=== PATIENT | female | born 1985 | race Caucasian/White ===

== ENCOUNTER 2017-08-01 19:16 | Emergency (ER) | payer OTHER ==
[2017-08-01 19:55] LABS: BASOPHILS 0 % (0-2); EOSINOPHILS 0.2 % (0-7); HEMATOCRIT 35.2 % (36.0-48.0); HEMOGLOBIN 12.4 g/dL (12-16); LYMPHOCYTES 15.1 % (15-50); MCH 30.8 pg (26.0-34.0); MCHC 35.2 g/dL (31.0-37.0); MCV 87.6 fL (80.0-100.0); MEAN PLATELET VOLUME 9.2 fL (7.4-10.4); MONOCYTES 11.4 % (2-11); NEUTROPHILS 73.3 % (40-80); PLATELET COUNT 158 10x3/uL (130-400); RBC 4.02 10x6/uL (4.00-5.40); RDW 11.9 % (11.5-14.5)
[2017-08-01 20:09] LABS: ALBUMIN 3.9 g/dL (3.4-5.0); ANION GAP 15.3 mmol/L (8-16); BILIRUBIN - TOTAL 0.39 mg/dL (0.2-1.3); CALCIUM 8.7 mg/dL (8.5-10.1); POTASSIUM - SERUM 3.3 mmol/L (3.5-5.1); PROTEIN - SERUM 7.5 g/dL (6.4-8.2)
== END 2017-08-01 20:50 | disposition home or self-care (01) ==
LOC: D.ER 19:16
PROVIDERS: Family Medicine
DX: J11.1 Influenza due to unidentified influenza virus with other respiratory manifestations (principal)

== ENCOUNTER 2018-10-23 20:34 | Emergency (ER) | payer OTHER ==
[~2018-10-23] VITALS: Ht 167.6 cm; Wt 97.7 kg
[2018-10-23 20:45] VITALS: Ht 167.6 cm; Wt 97.7 kg
[2018-10-23] MEDS ORDERED: CLEOCIN HCL300 MG PO (21:34)
[2018-10-23] MEDS ORDERED: HYDROCODON-ACE1 EAC2 PO (21:34)
[2018-10-23 21:56] VITALS: BP 134/93
== END 2018-10-23 21:43 | disposition home or self-care (01) ==
LOC: D.ER 20:34
DX: S02.5XXA Fracture of tooth (traumatic), initial encounter for closed fracture (principal); X58.XXXA Exposure to other specified factors, initial encounter; Y93.89 Activity, other specified; Y92.89 Other specified places as the place of occurrence of the external cause